=== PATIENT | female | born 1965 | race Caucasian/White ===

== ENCOUNTER → 2021-02-05 | Outpatient (CLI) | payer OTHER ==
[~2021-02-05] MED LIST: BUPRENORPHIN-N1 EACH SL; GABAPENTIN800 MG PO; HYDROCHLOROTHIA25 MG PO; LINZESS145 MCG PO; PEPCID40 MG PO; PROTONIX40 MG PO; ROBAXIN 750 MG750 MG PO; SUCRALFATE1 GM/10 ML PO
== END ==
LOC: KOH-I 15:18
DX: M25.511 Pain in right shoulder (principal); M25.531 Pain in right wrist; M19.041 Primary osteoarthritis, right hand
CPT/HCPCS: 73030; 73060; 73090; 73110; 73130

== ENCOUNTER → 2021-02-06 | Outpatient (CLI) | payer OTHER | LOC: KOH-I 11:47 | DX: M25.511 Pain in right shoulder (principal); R93.6 Abnormal findings on diagnostic imaging of limbs | CPT/HCPCS: 73221 ==